=== PATIENT | female | born 1940 | race Caucasian/White ===

== ENCOUNTER → 2017-08-16 | Outpatient (CLI) | payer MEDICARE ==
[~2017-08-16] MED LIST: ANTI1CAP PO; APIX2.5T PO; BENA1TAB11 PO; BENZ200C48 PO; CALC0.25 PO; CALC667C PO; CITA40TA5 PO; FENTANYL PF 100 MCG/2ML ONE; FURO-92 PO; GABA-826 PO; LANS30CA PO; LEVO50TA5 PO; METO-93 PO; METO25TA35 PO; MIDAZOLAM 1 MG/ML, 5ML ONE; MIDO5TAB PO; OMEP-110 PO; SIMV20TA3 PO; SULF-16 PO; WARF1TAB74 PO
== END | disposition home or self-care (01) ==
LOC: CARD 13:59
PROVIDERS: ATTEND Internal Medicine Cardiovascular Disease
DX: J44.9 Chronic obstructive pulmonary disease, unspecified (principal); R06.02 Shortness of breath
CPT/HCPCS: 94060; 94726; 94729

== ENCOUNTER 2017-08-25 10:37 | Day surgery (SDC) | payer MEDICARE ==
[~2017-08-25] VITALS: Ht 162.6 cm; Wt 57.0 kg
[~2017-08-25 10:37] MED LIST changes: -FENTANYL PF 100 MCG/2ML ONE; -MIDAZOLAM 1 MG/ML, 5ML ONE
[2017-08-25 11:18] VITALS: BP 154/67
[2017-08-25] MEDS ORDERED: LIDOCAINE/PF 1%, 30ML ONE (13:28)
[2017-08-25] MEDS ORDERED: DIPHENHYDRAMINE 50 MG/ML, 1ML ONE (13:42)
[2017-08-25] MEDS ORDERED: ALBUTEROL SULFATE 2.5 MG/3 ML ONE (14:42)
[2017-08-25] MEDS ORDERED: FUROSEMIDE 40 MG/4 ML ONE (14:51)
[2017-08-25] MEDS ORDERED: FUROSEMIDE 40 MG/4 ML IV ONE (15:00)
[2017-08-25] MEDS ORDERED: ALBUTEROL SULFATE 2.5 MG/3 ML NPPB ONE (15:00)
== END 2017-08-25 16:53 | disposition home or self-care (01) ==
LOC: CACL 10:37
PROVIDERS: ATTEND Internal Medicine Cardiovascular Disease
DX: I27.20 Pulmonary hypertension, unspecified (principal); J44.9 Chronic obstructive pulmonary disease, unspecified; J84.10 Pulmonary fibrosis, unspecified; I12.0 Hypertensive chronic kidney disease with stage 5 chronic kidney disease or end stage renal disease; N18.6 End stage renal disease; Z85.51 Personal history of malignant neoplasm of bladder; Z87.440 Personal history of urinary (tract) infections
CPT/HCPCS: 93451; 94640; 99156; 99157; C1769; C1894; J1200; J1940; J2250; J3010; J3490

== ENCOUNTER 2017-08-27 04:21 | Inpatient (IN) | payer MEDICARE ==
[~2017-08-27] VITALS: Ht 162.6 cm; Wt 58.0 kg
[2017-08-27 09:14] LABS: FIO2 40 %
[2017-08-27 09:16] LABS: MEAN CORPUSCULAR HEMOGLOBIN 36.9 pg (27.0-34.8); MEAN CORPUSCULAR HGB CONC 32.9 g/dL (32.4-35.8); MEAN CORPUSCULAR VOLUME 112.3 fL (80-100); MEAN PLATELET VOLUME 7.8 fL (7.4-10.4); PLATELET COUNT 182 x10^3/uL (130-400); RED BLOOD COUNT 2.41 x10^6/uL (3.82-5.3); RED CELL DISTRIBUTION WIDTH 14.4 % (9.6-15.2)
[2017-08-27 09:27] LABS: ALANINE AMINOTRANSFERASE 26 U/L (12-78); ALBUMIN 3.4 g/dL (3.4-5.0); ANION GAP 7 mmol/L (5-15); CALCIUM 9.1 mg/dL (8.5-10.1); CHLORIDE 95 mmol/L (98-107)
[2017-08-27 09:32] LABS: ALKALINE PHOSPHATASE 75 U/L (45-117); BILIRUBIN,TOTAL 0.6 mg/dL (0.2-1.0); TOTAL PROTEIN 6.6 g/dL (6.4-8.2); TROPONIN I < 0.015 ng/mL (0.000-0.045)
[2017-08-27] MEDS ORDERED: FAMOTIDINE 20 MG/2 ML IVPush SCH (10:00)
[2017-08-27] MEDS ORDERED: hydrALAzine 20 MG/ML, 1ML IVPush PRN (10:00)
[2017-08-27] MEDS ORDERED: BISACODYL 10 MG SUPP PR PRN (10:00)
[2017-08-27] MEDS ORDERED: POLYETHYLENE GLYCOL 17 GM PACKET PO PRN (10:00)
[2017-08-27] MEDS ORDERED: DOCUSATE 100 MG CAPSULE PO PRN (10:00)
[2017-08-27] MEDS: PLEASE ENTER HEIGHT AND WEIGHT MC SCH ×2 (10:30→13:23)
[2017-08-27 10:39] VITALS: BP 129/67
[2017-08-27 10:55] LABS: MD MORPH REVIEW ONLY
[2017-08-27 10:56] LABS: BASOPHILS # (AUTO) 0.01 x10^3/uL (0-0.1); BASOPHILS % (AUTO) 0 % (0-1); EOSINOPHILS # (AUTO) 0.05 x10^3/uL (0-0.4); EOSINOPHILS % (AUTO) 1 % (1-7); LYMPHOCYTES # (AUTO) 0.69 x10^3/uL (1-3.4); LYMPHOCYTES % (AUTO) 15 % (22-44); MONOCYTES # (AUTO) 0.52 x10^3/uL (0.2-0.8); MONOCYTES % (AUTO) 11 % (2-9); NEUTROPHILS # (AUTO) 3.29 x10^3/uL (1.8-6.8); NEUTROPHILS % (AUTO) 72 % (42-75)
[2017-08-27 10:58] LABS: <PLATELET ESTIMATE> ADEQUATE; <PLT MORPHOLOGY> NORMAL PLT MORPH; ANISOCYTOSIS 1+
[2017-08-27] MEDS: methylPREDNISolone SOD SUCC 125 MG/2 ML IVPush SCH ×2 (13:31→21:52)
[2017-08-27] MEDS: DOXYCYCLINE 100MG TABLET PO SCH ×2 (13:32→21:53)
[2017-08-27] MEDS: MIDODRINE 5 MG TABLET PO SCH ×2 (15:31→21:52)
[2017-08-27] MEDS ORDERED: ALBUMIN HUMAN 25% 50 ML IV PRN (17:00)
[2017-08-27] MEDS: CALCIUM ACETATE 667 MG CAPSULE PO SCH (19:37)
[2017-08-27] MEDS: GABAPENTIN 100 MG CAPSULE PO SCH ×2 (19:37→21:00)
[2017-08-27] MEDS ORDERED: hydrOXyzine 10 MG/5 ML ORAL SOL PO PRN (20:00)
[2017-08-27] MEDS: APIXABAN 2.5 MG TABLET PO SCH (21:52)
[2017-08-27] MEDS: SIMVASTATIN 20 MG TABLET PO SCH (21:53)
[2017-08-27] MEDS: ACETAMINOPHEN 325 MG TABLET PO PRN (21:53)
[2017-08-28] MEDS ORDERED: DILTIAZEM 125 MG in SODIUM CHLORIDE 0.9% 100 ML IV PRN (02:00)
[2017-08-28] MEDS: methylPREDNISolone SOD SUCC 125 MG/2 ML IVPush SCH ×4 (04:31→22:05)
[2017-08-28 05:27] LABS: MEAN CORPUSCULAR HEMOGLOBIN 37.6 pg (27.0-34.8); MEAN CORPUSCULAR HGB CONC 33.7 g/dL (32.4-35.8); MEAN CORPUSCULAR VOLUME 111.7 fL (80-100); MEAN PLATELET VOLUME 8.2 fL (7.4-10.4); PLATELET COUNT 171 x10^3/uL (130-400); RED BLOOD COUNT 2.43 x10^6/uL (3.82-5.3); RED CELL DISTRIBUTION WIDTH 14.2 % (9.6-15.2)
[2017-08-28 05:35] LABS: CHLORIDE 96 mmol/L (98-107)
[2017-08-28 05:43] LABS: ALANINE AMINOTRANSFERASE 24 U/L (12-78); ALBUMIN 3.4 g/dL (3.4-5.0); ALKALINE PHOSPHATASE 77 U/L (45-117); ANION GAP 9 mmol/L (5-15); BILIRUBIN,TOTAL 0.6 mg/dL (0.2-1.0); CALCIUM 9.7 mg/dL (8.5-10.1); CREATININE 4.71 mg/dL (0.55-1.02); TOTAL PROTEIN 6.5 g/dL (6.4-8.2)
[2017-08-28 06:09] LABS: BASOPHILS # (AUTO) 0.01 x10^3/uL (0-0.1); BASOPHILS % (AUTO) 0 % (0-1); EOSINOPHILS % (AUTO) 0 % (1-7); LYMPHOCYTES # (AUTO) 0.48 x10^3/uL (1-3.4); LYMPHOCYTES % (AUTO) 11 % (22-44); MD SCAN; MONOCYTES # (AUTO) 0.09 x10^3/uL (0.2-0.8); MONOCYTES % (AUTO) 2 % (2-9); NEUTROPHILS # (AUTO) 3.68 x10^3/uL (1.8-6.8); NEUTROPHILS % (AUTO) 87 % (42-75)
[2017-08-28] MEDS: CITALOPRAM 20 MG TABLET PO SCH (08:30)
[2017-08-28] MEDS: GABAPENTIN 100 MG CAPSULE PO SCH ×3 (08:30→22:06)
[2017-08-28] MEDS: CALCIUM ACETATE 667 MG CAPSULE PO SCH ×3 (08:30→16:11)
[2017-08-28] MEDS: DOXYCYCLINE 100MG TABLET PO SCH ×2 (08:30→22:06)
[2017-08-28] MEDS: OMEPRAZOLE 20 MG CAPSULE.DR PO SCH (08:30)
[2017-08-28] MEDS: APIXABAN 2.5 MG TABLET PO SCH ×2 (08:30→22:07)
[2017-08-28] MEDS: LEVOTHYROXINE 50 MCG TABLET PO SCH (08:30)
[2017-08-28] MEDS: METOPROLOL TARTRATE 25 MG TABLET PO SCH ×2 (09:17→22:05)
[2017-08-28] MEDS: FLUTICASONE NASAL SPRAY 16GM NAS SCH (10:28)
[2017-08-28 16:10] VITALS: BP 146/69
[2017-08-28 19:35] VITALS: BP 149/72
[2017-08-28] MEDS: SIMVASTATIN 20 MG TABLET PO SCH (22:07)
[2017-08-28] MEDS: ACETAMINOPHEN 325 MG TABLET PO PRN (22:28)
[2017-08-29 00:42] VITALS: BP 122/58
[2017-08-29] MEDS: methylPREDNISolone SOD SUCC 125 MG/2 ML IVPush SCH ×4 (04:00→22:57)
[2017-08-29 04:48] LABS: MEAN CORPUSCULAR HGB CONC 33.2 g/dL (32.4-35.8); MEAN CORPUSCULAR VOLUME 111.5 fL (80-100); MEAN PLATELET VOLUME 8.2 fL (7.4-10.4); PLATELET COUNT 182 x10^3/uL (130-400); RED BLOOD COUNT 2.36 x10^6/uL (3.82-5.3); RED CELL DISTRIBUTION WIDTH 14.4 % (9.6-15.2)
[2017-08-29 04:54] LABS: ALBUMIN 3.6 g/dL (3.4-5.0); ANION GAP 10 mmol/L (5-15); CALCIUM 9.5 mg/dL (8.5-10.1); CHLORIDE 95 mmol/L (98-107)
[2017-08-29 04:59] LABS: ALANINE AMINOTRANSFERASE 23 U/L (12-78); ALKALINE PHOSPHATASE 70 U/L (45-117); BILIRUBIN,TOTAL 0.7 mg/dL (0.2-1.0); CREATININE 5.85 mg/dL (0.55-1.02); TOTAL PROTEIN 6.6 g/dL (6.4-8.2)
[2017-08-29 05:52] LABS: BASOPHILS # (AUTO) 0.01 x10^3/uL (0-0.1); BASOPHILS % (AUTO) 0 % (0-1); EOSINOPHILS % (AUTO) 0 % (1-7); LYMPHOCYTES # (AUTO) 0.46 x10^3/uL (1-3.4); LYMPHOCYTES % (AUTO) 6 % (22-44); MD SCAN; MONOCYTES # (AUTO) 0.19 x10^3/uL (0.2-0.8); MONOCYTES % (AUTO) 2 % (2-9); NEUTROPHILS # (AUTO) 7.68 x10^3/uL (1.8-6.8); NEUTROPHILS % (AUTO) 92 % (42-75)
[2017-08-29] MEDS: ALBUTEROL/IPRATROPIUM 2.5MG/0.5MG, 3 ML NPPB SCH ×4 (06:50→19:58)
[2017-08-29 07:42] VITALS: BP 128/61
[2017-08-29] MEDS: FLUTICASONE NASAL SPRAY 16GM NAS SCH (09:00)
[2017-08-29] MEDS: CALCIUM ACETATE 667 MG CAPSULE PO SCH ×3 (09:14→17:00)
[2017-08-29] MEDS: GABAPENTIN 100 MG CAPSULE PO SCH ×3 (09:14→21:19)
[2017-08-29] MEDS: OMEPRAZOLE 20 MG CAPSULE.DR PO SCH (09:15)
[2017-08-29] MEDS: METOPROLOL TARTRATE 25 MG TABLET PO SCH ×2 (09:16→21:20)
[2017-08-29] MEDS: LEVOTHYROXINE 50 MCG TABLET PO SCH (09:17)
[2017-08-29] MEDS: DOXYCYCLINE 100MG TABLET PO SCH ×2 (09:17→21:20)
[2017-08-29] MEDS: APIXABAN 2.5 MG TABLET PO SCH ×2 (09:18→21:19)
[2017-08-29] MEDS: CITALOPRAM 20 MG TABLET PO SCH (09:18)
[2017-08-29 20:31] VITALS: BP 124/57
[2017-08-29] MEDS: ACETAMINOPHEN 325 MG TABLET PO PRN (21:19)
[2017-08-29] MEDS: SIMVASTATIN 20 MG TABLET PO SCH (21:19)
[2017-08-30 02:19] VITALS: BP 125/60
[2017-08-30 04:54] LABS: MEAN CORPUSCULAR HEMOGLOBIN 37.4 pg (27.0-34.8); MEAN CORPUSCULAR HGB CONC 33.3 g/dL (32.4-35.8); MEAN CORPUSCULAR VOLUME 112.3 fL (80-100); MEAN PLATELET VOLUME 8.3 fL (7.4-10.4); PLATELET COUNT 187 x10^3/uL (130-400); RED BLOOD COUNT 2.64 x10^6/uL (3.82-5.3); RED CELL DISTRIBUTION WIDTH 14.6 % (9.6-15.2)
[2017-08-30] MEDS: methylPREDNISolone SOD SUCC 125 MG/2 ML IVPush SCH ×2 (04:57→11:39)
[2017-08-30 05:08] LABS: ALBUMIN 3.6 g/dL (3.4-5.0); ANION GAP 9 mmol/L (5-15); CALCIUM 9.2 mg/dL (8.5-10.1); CHLORIDE 99 mmol/L (98-107); CREATININE 4.26 mg/dL (0.55-1.02)
[2017-08-30 05:11] LABS: BASOPHILS # (AUTO) 0.02 x10^3/uL (0-0.1); BASOPHILS % (AUTO) 0 % (0-1); EOSINOPHILS % (AUTO) 0 % (1-7); LYMPHOCYTES # (AUTO) 0.49 x10^3/uL (1-3.4); LYMPHOCYTES % (AUTO) 5 % (22-44); MD SCAN; MONOCYTES # (AUTO) 0.19 x10^3/uL (0.2-0.8); MONOCYTES % (AUTO) 2 % (2-9); NEUTROPHILS # (AUTO) 8.86 x10^3/uL (1.8-6.8); NEUTROPHILS % (AUTO) 93 % (42-75)
[2017-08-30] MEDS: ALBUTEROL/IPRATROPIUM 2.5MG/0.5MG, 3 ML NPPB SCH ×3 (06:50→15:30)
[2017-08-30 07:49] VITALS: BP 133/63
[2017-08-30] MEDS: CITALOPRAM 20 MG TABLET PO SCH (09:36)
[2017-08-30] MEDS: GABAPENTIN 100 MG CAPSULE PO SCH (09:36)
[2017-08-30] MEDS: LEVOTHYROXINE 50 MCG TABLET PO SCH (09:36)
[2017-08-30] MEDS: METOPROLOL TARTRATE 25 MG TABLET PO SCH (09:37)
[2017-08-30] MEDS: CALCIUM ACETATE 667 MG CAPSULE PO SCH ×2 (09:37→11:39)
[2017-08-30] MEDS: OMEPRAZOLE 20 MG CAPSULE.DR PO SCH (09:38)
[2017-08-30] MEDS: FLUTICASONE NASAL SPRAY 16GM NAS SCH (09:38)
[2017-08-30] MEDS: APIXABAN 2.5 MG TABLET PO SCH (09:38)
[2017-08-30] MEDS: DOXYCYCLINE 100MG TABLET PO SCH (09:38)
[2017-08-30] MEDS ORDERED: DOXY100T PO (11:23)
[2017-08-30 12:45] VITALS: BP 118/61
[2017-08-30] MEDS ORDERED: PRED20TA PO (14:52)
== END 2017-08-30 16:54 | disposition home or self-care (01) | DRG 189 ==
LOC: CCU 07:14 → 5SO 08-28 13:56 → DCLOUNGE 08-30 16:43
PROVIDERS: ADMIT Hospitalist; ATTEND Hospitalist
PROC: 5A09357 Assistance with Respiratory Ventilation, Less than 24 Consecutive Hours, Continuous Positive Airway Pressure (ICD-10-PCS; principal; 2017-08-27)
PROC: 5A1D70Z Performance of Urinary Filtration, Intermittent, Less than 6 Hours Per Day (ICD-10-PCS; 2017-08-27)
PROC: 5A1D70Z Performance of Urinary Filtration, Intermittent, Less than 6 Hours Per Day (ICD-10-PCS; 2017-08-29)
DX: J96.21 Acute and chronic respiratory failure with hypoxia (principal); N18.6 End stage renal disease; J44.1 Chronic obstructive pulmonary disease with (acute) exacerbation; D68.69 Other thrombophilia; E44.1 Mild protein-calorie malnutrition; E87.3 Alkalosis; I12.0 Hypertensive chronic kidney disease with stage 5 chronic kidney disease or end stage renal disease; I27.20 Pulmonary hypertension, unspecified; D63.1 Anemia in chronic kidney disease; I48.0 Paroxysmal atrial fibrillation; Z99.2 Dependence on renal dialysis; E03.9 Hypothyroidism, unspecified; F32.9 Major depressive disorder, single episode, unspecified; K21.9 Gastro-esophageal reflux disease without esophagitis; N25.0 Renal osteodystrophy; Z23 Encounter for immunization; Z79.01 Long term (current) use of anticoagulants; Z85.51 Personal history of malignant neoplasm of bladder; Z85.528 Personal history of other malignant neoplasm of kidney; Z87.891 Personal history of nicotine dependence; Z90.5 Acquired absence of kidney
CPT/HCPCS: 36415; 36600; 71045; 80053; 80069; 82103; 82104; 82803; 82962; 83605; 83735; 84100; 84145; 84484; 85025; 87040; 87081; 93005; 94640; 94660; J7620; J2930; Q0177; S0028

== ENCOUNTER → 2017-11-10 | Outpatient (CLI) | payer MEDICARE ==
[~2017-11-10] MED LIST changes: +DOXY100T PO; +PRED20TA PO
== END | disposition home or self-care (01) ==
LOC: CFH 10:26
PROVIDERS: ATTEND Internal Medicine
DX: J43.2 Centrilobular emphysema (principal); I25.10 Atherosclerotic heart disease of native coronary artery without angina pectoris; I51.7 Cardiomegaly; I50.9 Heart failure, unspecified; Z85.528 Personal history of other malignant neoplasm of kidney; Z87.891 Personal history of nicotine dependence
CPT/HCPCS: 71250

== ENCOUNTER 2018-08-14 10:52 | Inpatient (IN) | payer MEDICARE ==
[~2018-08-14] VITALS: Ht 162.6 cm; Wt 63.7 kg
[~2018-08-14 10:52] MED LIST changes: -MIDO5TAB PO; +MIDO5TAB9 PO
[2018-08-14] MEDS ORDERED: DILTIAZEM 125 MG in SODIUM CHLORIDE 0.9% 100 ML IV SCH ×2 (10:57→15:00)
[2018-08-14] MEDS ORDERED: DILTIAZEM 5 MG/ML, 5ML IV ONE (11:00)
[2018-08-14] MEDS ORDERED: DILTIAZEM 5 MG/ML, 5ML ONE (11:09)
[2018-08-14 11:15] LABS: BASOPHILS # (AUTO) 0.01 x10^3/uL (0-0.1); BASOPHILS % (AUTO) 0 % (0-1); EOSINOPHILS # (AUTO) 0.22 x10^3/uL (0-0.4); EOSINOPHILS % (AUTO) 3 % (1-7); LYMPHOCYTES # (AUTO) 0.61 x10^3/uL (1-3.4); LYMPHOCYTES % (AUTO) 9 % (22-44); MD NO; MEAN CORPUSCULAR HEMOGLOBIN 34.9 pg (27.0-34.8); MEAN CORPUSCULAR VOLUME 108.8 fL (80-100); MEAN PLATELET VOLUME 7.9 fL (7.4-10.4); MONOCYTES # (AUTO) 0.56 x10^3/uL (0.2-0.8); MONOCYTES % (AUTO) 8 % (2-9); NEUTROPHILS # (AUTO) 5.78 x10^3/uL (1.8-6.8); NEUTROPHILS % (AUTO) 80 % (42-75); PLATELET COUNT 217 x10^3/uL (130-400); RED CELL DISTRIBUTION WIDTH 13.6 % (9.6-15.2)
[2018-08-14 11:25] LABS: ALBUMIN 3.4 g/dL (3.4-5.0); ANION GAP 8 mmol/L (5-15); CALCIUM 9.6 mg/dL (8.5-10.1); CHLORIDE 97 mmol/L (98-107); CREATININE 5.29 mg/dL (0.55-1.02)
--- NOTE | 2018-08-14 11:25 | NUR ---
PT BIB EMS. WAS GOING TO DIALYSIS THIS AM. STATES SHE DEVELOPED A BARRETT AND BECAME DIZZY WHILE GETTING OUT OF THE CAR. AT TREATMENT, PT REMAINED DIZZY. NOTED TO BE TACHYCARDIC AND HYPOTENSIVE AT DIALYSIS. PER EMS, BP SYSTOLIC 70-90. HR 160'S AFIB. PT DID NOT FINISH DIALYSIS TREATMENT PRIOR TO EMS . PT ARRIVES WITH HR 170 IN AFIB. CP MONITORS IN PLACE AND EKG AT BEDSIDE. DENIES CHEST PAIN. IV ACCESS ESTABLISHED AND LABS DRAWN. PT GIVEN DILT PUSH PER ORDER. AND DILT GTT STARTED. HR NOW 100 TO 110'S, AFIB. BP 104/56 NOW. PT A&OX4. PT DENIES DIZZINESS WHILE RESTING ON GURNEY. AT BEDSIDE. CALL LIGHT IN REACH. SIDERAILS UP X 2.
[2018-08-14 11:29] LABS: TROPONIN I < 0.015 ng/mL (0.000-0.045)
--- NOTE | 2018-08-14 12:37 | NUR ---
PT RESTING ON KRISSY. SUNITA. HR STABLE.
--- NOTE | 2018-08-14 12:39 | NUR ---
PER DANIELA AGUILAR FOR PT TO HAVE DIET TRAY. CARDS DIET ORDERED.
[2018-08-14] MEDS ORDERED: CEFTRIAXONE PMX 1GM/50ML 50 ML IV ONE (13:00)
--- NOTE | 2018-08-14 13:08 | NUR ---
ADMITTING DR TO BEDSIDE FOR EXAM. LAB TO BEDSIDE FOR BLOOD CULTURES.
[2018-08-14] MEDS ORDERED: CEFTRIAXONE PMX 1GM/50ML 50 ML ONE (13:12)
--- NOTE | 2018-08-14 13:28 | NUR ---
REPORT TO GAY AARON.
[2018-08-14] MEDS ORDERED: hydrALAzine 20 MG/ML, 1ML IVPush PRN (13:30)
[2018-08-14] MEDS ORDERED: ONDANSETRON 2MG/ML, 2ML IVPush PRN (13:30)
[2018-08-14 14:01] VITALS: BP 97/61
[2018-08-14] MEDS ORDERED: ALBUTEROL/IPRATROPIUM 2.5MG/0.5MG, 3 ML ONE (16:38)
[2018-08-14] MEDS: ALBUTEROL/IPRATROPIUM 2.5MG/0.5MG, 3 ML NPPB SCH ×2 (16:41→20:57)
[2018-08-14] MEDS: MIDODRINE 5 MG TABLET PO SCH ×2 (16:59→20:48)
[2018-08-14] MEDS: GABAPENTIN 100 MG CAPSULE PO SCH ×2 (17:00→20:49)
[2018-08-14] MEDS: CALCIUM ACETATE 667 MG CAPSULE PO SCH (17:00)
[2018-08-14] MEDS: METOPROLOL TARTRATE 25 MG TABLET PO SCH (17:09)
[2018-08-14] MEDS ORDERED: METOPROLOL TARTRATE 25 MG TABLET PO SCH ×2 (18:00)
[2018-08-14 19:47] LABS: TROPONIN I 0.383 ng/mL (0.000-0.045)
[2018-08-14 19:59] VITALS: BP 111/65
[2018-08-14] MEDS: SIMVASTATIN 20 MG TABLET PO SCH (20:49)
[2018-08-14] MEDS: APIXABAN 2.5 MG TABLET PO SCH (20:50)
[2018-08-14] MEDS: BUDESONIDE 0.5 MG/2 ML INHA INH SCH (20:57)
[2018-08-14] MEDS: DILTIAZEM 125 MG in SODIUM CHLORIDE 0.9% 100 ML IV SCH (21:50)
[2018-08-14] MEDS: ACETAMINOPHEN 325 MG TABLET PO PRN (21:56)
[2018-08-15] VITALS (8 sets, daily range): BP systolic 114–149; BP diastolic 58–79
[2018-08-15 02:30] LABS: BASOPHILS # (AUTO) 0.05 x10^3/uL (0-0.1); BASOPHILS % (AUTO) 1 % (0-1); EOSINOPHILS # (AUTO) 0.23 x10^3/uL (0-0.4); EOSINOPHILS % (AUTO) 4 % (1-7); LYMPHOCYTES # (AUTO) 0.79 x10^3/uL (1-3.4); LYMPHOCYTES % (AUTO) 15 % (22-44); MD NO; MEAN CORPUSCULAR HEMOGLOBIN 35.3 pg (27.0-34.8); MEAN CORPUSCULAR HGB CONC 32.2 g/dL (32.4-35.8); MEAN CORPUSCULAR VOLUME 109.6 fL (80-100); MEAN PLATELET VOLUME 7.9 fL (7.4-10.4); MONOCYTES # (AUTO) 0.68 x10^3/uL (0.2-0.8); MONOCYTES % (AUTO) 13 % (2-9); NEUTROPHILS # (AUTO) 3.64 x10^3/uL (1.8-6.8); NEUTROPHILS % (AUTO) 68 % (42-75); PLATELET COUNT 222 x10^3/uL (130-400); RED BLOOD COUNT 2.12 x10^6/uL (3.82-5.3); RED CELL DISTRIBUTION WIDTH 13.8 % (9.6-15.2)
[2018-08-15 02:42] LABS: ANION GAP 9 mmol/L (5-15); CALCIUM 8.9 mg/dL (8.5-10.1); CHLORIDE 96 mmol/L (98-107)
[2018-08-15 02:49] LABS: % IRON SATURATION 13 % (20-55); CREATININE 6.41 mg/dL (0.55-1.02); IRON LEVEL 39 mcg/dL (50-170); TOTAL IRON BINDING CAPACITY 306 mcg/dL (250-450); TROPONIN I 0.378 ng/mL (0.000-0.045)
[2018-08-15] MEDS: ALBUTEROL/IPRATROPIUM 2.5MG/0.5MG, 3 ML NPPB SCH ×4 (03:00→21:00)
[2018-08-15] MEDS: METOPROLOL TARTRATE 25 MG TABLET PO SCH ×2 (05:46→17:38)
[2018-08-15] MEDS: BUDESONIDE 0.5 MG/2 ML INHA INH SCH ×2 (09:00→21:00)
[2018-08-15] MEDS: APIXABAN 2.5 MG TABLET PO SCH ×2 (09:26→21:00)
[2018-08-15] MEDS: CALCIUM ACETATE 667 MG CAPSULE PO SCH ×3 (09:26→17:38)
[2018-08-15] MEDS: MIDODRINE 5 MG TABLET PO SCH ×3 (09:26→21:01)
[2018-08-15] MEDS: LEVOTHYROXINE 50 MCG TABLET PO SCH (09:26)
[2018-08-15] MEDS: OMEPRAZOLE 20 MG CAPSULE.DR PO SCH (09:26)
[2018-08-15] MEDS: GABAPENTIN 100 MG CAPSULE PO SCH ×3 (09:26→21:00)
[2018-08-15] MEDS: CITALOPRAM 20 MG TABLET PO SCH (09:26)
[2018-08-15] MEDS: DILTIAZEM 125 MG in SODIUM CHLORIDE 0.9% 100 ML IV SCH ×2 (10:57→22:37)
[2018-08-15] MEDS: CEFTRIAXONE PMX 1GM/50ML 50 ML IV SCH (14:37)
[2018-08-15] MEDS: DOCUSATE 100 MG CAPSULE PO SCH (21:00)
[2018-08-15] MEDS: ACETAMINOPHEN 325 MG TABLET PO PRN (21:01)
[2018-08-15] MEDS: SIMVASTATIN 20 MG TABLET PO SCH (21:02)
[2018-08-16 01:27] VITALS: BP_SYST 119; BP_SYST 144; BP_DIAS 68; BP_DIAS 74
[2018-08-16] MEDS: ALBUTEROL/IPRATROPIUM 2.5MG/0.5MG, 3 ML NPPB SCH ×4 (03:00→18:20)
[2018-08-16 05:34] LABS: MEAN CORPUSCULAR HEMOGLOBIN 34.7 pg (27.0-34.8); MEAN CORPUSCULAR HGB CONC 32.8 g/dL (32.4-35.8); MEAN CORPUSCULAR VOLUME 105.8 fL (80-100); MEAN PLATELET VOLUME 8.2 fL (7.4-10.4); PLATELET COUNT 214 x10^3/uL (130-400); RED BLOOD COUNT 2.59 x10^6/uL (3.82-5.3); RED CELL DISTRIBUTION WIDTH 16.8 % (9.6-15.2)
[2018-08-16] MEDS: METOPROLOL TARTRATE 25 MG TABLET PO SCH ×2 (05:36→18:01)
[2018-08-16 05:43] LABS: ALBUMIN 3.1 g/dL (3.4-5.0); ANION GAP 7 mmol/L (5-15); CALCIUM 9.1 mg/dL (8.5-10.1); CHLORIDE 99 mmol/L (98-107); CREATININE 4.44 mg/dL (0.55-1.02)
[2018-08-16 06:19] LABS: BASOPHILS # (AUTO) 0.03 x10^3/uL (0-0.1); BASOPHILS % (AUTO) 1 % (0-1); EOSINOPHILS # (AUTO) 0.46 x10^3/uL (0-0.4); EOSINOPHILS % (AUTO) 8 % (1-7); LYMPHOCYTES # (AUTO) 0.67 x10^3/uL (1-3.4); LYMPHOCYTES % (AUTO) 11 % (22-44); MD NO; MONOCYTES # (AUTO) 0.71 x10^3/uL (0.2-0.8); MONOCYTES % (AUTO) 11 % (2-9); NEUTROPHILS # (AUTO) 4.31 x10^3/uL (1.8-6.8); NEUTROPHILS % (AUTO) 70 % (42-75)
[2018-08-16] MEDS: BUDESONIDE 0.5 MG/2 ML INHA INH SCH ×2 (07:54→18:20)
[2018-08-16 09:09] VITALS: BP 155/80
[2018-08-16] MEDS: CALCIUM ACETATE 667 MG CAPSULE PO SCH ×3 (09:14→17:59)
[2018-08-16] MEDS: APIXABAN 2.5 MG TABLET PO SCH (09:16)
[2018-08-16] MEDS: CITALOPRAM 20 MG TABLET PO SCH (09:16)
[2018-08-16] MEDS: DOCUSATE 100 MG CAPSULE PO SCH ×2 (09:16→21:31)
[2018-08-16] MEDS: GABAPENTIN 100 MG CAPSULE PO SCH ×3 (09:16→21:34)
[2018-08-16] MEDS: OMEPRAZOLE 20 MG CAPSULE.DR PO SCH (09:16)
[2018-08-16] MEDS: MIDODRINE 5 MG TABLET PO SCH ×3 (09:17→21:28)
[2018-08-16] MEDS: LEVOTHYROXINE 50 MCG TABLET PO SCH (09:18)
[2018-08-16] MEDS ORDERED: OMNIPAQUE 350 MG/ML, 100ML BOTTLE ONE (10:28)
[2018-08-16] MEDS: GUAIFENESIN ER 600 MG TABLET PO SCH ×2 (12:56→21:30)
[2018-08-16 13:05] VITALS: BP 161/80
[2018-08-16] MEDS: CEFTRIAXONE PMX 1GM/50ML 50 ML IV SCH (17:59)
[2018-08-16] MEDS: DILTIAZEM CD 180 MG CAP.ER.24H PO SCH (17:59)
[2018-08-16] MEDS: HEPARIN 5,000 UNITS/ML, 1ML SQ SCH ×2 (18:00→21:33)
[2018-08-16 20:43] VITALS: BP 154/70
[2018-08-16] MEDS: SIMVASTATIN 20 MG TABLET PO SCH (21:31)
[2018-08-16] MEDS: ACETAMINOPHEN 325 MG TABLET PO PRN (21:31)
[2018-08-17 00:39] VITALS: BP 123/63
[2018-08-17] MEDS ORDERED: methylPREDNISolone SOD SUCC 125 MG/2 ML IVPush SCH (01:30)
[2018-08-17] MEDS ORDERED: FUROSEMIDE 40 MG/4 ML IV ONE (01:30)
[2018-08-17] MEDS: ALBUTEROL/IPRATROPIUM 2.5MG/0.5MG, 3 ML NPPB SCH ×4 (03:00→21:15)
[2018-08-17 05:11] LABS: BASOPHILS # (AUTO) 0.03 x10^3/uL (0-0.1); BASOPHILS % (AUTO) 0 % (0-1); EOSINOPHILS # (AUTO) 0.05 x10^3/uL (0-0.4); EOSINOPHILS % (AUTO) 1 % (1-7); LYMPHOCYTES # (AUTO) 0.53 x10^3/uL (1-3.4); LYMPHOCYTES % (AUTO) 8 % (22-44); MD NO; MEAN CORPUSCULAR HEMOGLOBIN 35.2 pg (27.0-34.8); MEAN CORPUSCULAR HGB CONC 33.3 g/dL (32.4-35.8); MEAN CORPUSCULAR VOLUME 105.5 fL (80-100); MEAN PLATELET VOLUME 8.1 fL (7.4-10.4); MONOCYTES % (AUTO) 6 % (2-9); NEUTROPHILS # (AUTO) 5.49 x10^3/uL (1.8-6.8); NEUTROPHILS % (AUTO) 84 % (42-75); PLATELET COUNT 223 x10^3/uL (130-400); RED BLOOD COUNT 2.74 x10^6/uL (3.82-5.3); RED CELL DISTRIBUTION WIDTH 15.3 % (9.6-15.2)
[2018-08-17 05:21] LABS: ALBUMIN 3.3 g/dL (3.4-5.0); ANION GAP 6 mmol/L (5-15); CALCIUM 9.5 mg/dL (8.5-10.1); CHLORIDE 100 mmol/L (98-107)
[2018-08-17 05:24] LABS: CREATININE 3.02 mg/dL (0.55-1.02)
[2018-08-17] MEDS: METOPROLOL TARTRATE 25 MG TABLET PO SCH ×2 (05:49→17:06)
[2018-08-17 07:41] VITALS: BP 123/63
[2018-08-17] MEDS: DOCUSATE 100 MG CAPSULE PO SCH ×2 (08:00→22:27)
[2018-08-17] MEDS: OMEPRAZOLE 20 MG CAPSULE.DR PO SCH (08:00)
[2018-08-17] MEDS: MIDODRINE 5 MG TABLET PO SCH ×3 (08:00→22:27)
[2018-08-17] MEDS: GUAIFENESIN ER 600 MG TABLET PO SCH ×2 (08:00→22:26)
[2018-08-17] MEDS: CITALOPRAM 20 MG TABLET PO SCH (08:00)
[2018-08-17] MEDS: LEVOTHYROXINE 50 MCG TABLET PO SCH (08:00)
[2018-08-17] MEDS: GABAPENTIN 100 MG CAPSULE PO SCH ×3 (08:00→22:27)
[2018-08-17] MEDS: DILTIAZEM CD 180 MG CAP.ER.24H PO SCH (08:00)
[2018-08-17] MEDS: CALCIUM ACETATE 667 MG CAPSULE PO SCH ×3 (08:00→17:07)
[2018-08-17] MEDS: HEPARIN 5,000 UNITS/ML, 1ML SQ SCH ×2 (09:35→17:07)
[2018-08-17] MEDS: BUDESONIDE 0.5 MG/2 ML INHA INH SCH ×2 (10:24→21:15)
[2018-08-17] MEDS: methylPREDNISolone SOD SUCC 125 MG/2 ML IVPush SCH ×3 (10:28→23:21)
[2018-08-17] MEDS: ACETAMINOPHEN 325 MG TABLET PO PRN ×2 (13:24→23:21)
[2018-08-17] MEDS: CEFTRIAXONE PMX 1GM/50ML 50 ML IV SCH (17:07)
[2018-08-17 17:08] VITALS: BP 146/69
[2018-08-17 20:16] VITALS: BP 136/63
[2018-08-17] MEDS: SIMVASTATIN 20 MG TABLET PO SCH (22:27)
[2018-08-18] MEDS: HEPARIN 5,000 UNITS/ML, 1ML SQ SCH ×3 (01:20→17:00)
[2018-08-18 02:03] VITALS: BP 138/66
[2018-08-18] MEDS: ALBUTEROL/IPRATROPIUM 2.5MG/0.5MG, 3 ML NPPB SCH ×4 (03:00→20:28)
[2018-08-18 05:18] LABS: BASOPHILS # (AUTO) 0.01 x10^3/uL (0-0.1); BASOPHILS % (AUTO) 0 % (0-1); EOSINOPHILS % (AUTO) 0 % (1-7); LYMPHOCYTES # (AUTO) 0.61 x10^3/uL (1-3.4); LYMPHOCYTES % (AUTO) 9 % (22-44); MD NO; MEAN CORPUSCULAR HEMOGLOBIN 33.7 pg (27.0-34.8); MEAN CORPUSCULAR HGB CONC 32.2 g/dL (32.4-35.8); MEAN CORPUSCULAR VOLUME 104.6 fL (80-100); MONOCYTES # (AUTO) 0.12 x10^3/uL (0.2-0.8); MONOCYTES % (AUTO) 2 % (2-9); NEUTROPHILS # (AUTO) 5.77 x10^3/uL (1.8-6.8); NEUTROPHILS % (AUTO) 89 % (42-75); PLATELET COUNT 266 x10^3/uL (130-400); RED BLOOD COUNT 2.98 x10^6/uL (3.82-5.3); RED CELL DISTRIBUTION WIDTH 15.4 % (9.6-15.2)
[2018-08-18 05:29] VITALS: BP 130/72
[2018-08-18 05:31] LABS: ALANINE AMINOTRANSFERASE 25 U/L (12-78); ALBUMIN 3.4 g/dL (3.4-5.0); ANION GAP 11 mmol/L (5-15); CHLORIDE 96 mmol/L (98-107); CREATININE 4.37 mg/dL (0.55-1.02)
[2018-08-18] MEDS: METOPROLOL TARTRATE 25 MG TABLET PO SCH ×2 (05:31→18:09)
[2018-08-18] MEDS: methylPREDNISolone SOD SUCC 125 MG/2 ML IVPush SCH ×3 (05:31→17:00)
[2018-08-18 05:34] LABS: ALKALINE PHOSPHATASE 90 U/L (45-117); BILIRUBIN,TOTAL 1.3 mg/dL (0.2-1.0); TOTAL PROTEIN 7.2 g/dL (6.4-8.2)
[2018-08-18] MEDS: ACETAMINOPHEN 325 MG TABLET PO PRN (06:18)
[2018-08-18 07:45] VITALS: BP 143/72
[2018-08-18] MEDS: BUDESONIDE 0.5 MG/2 ML INHA INH SCH ×2 (07:50→20:28)
[2018-08-18] MEDS: CALCIUM ACETATE 667 MG CAPSULE PO SCH ×3 (08:58→16:59)
[2018-08-18] MEDS: LEVOTHYROXINE 50 MCG TABLET PO SCH (08:58)
[2018-08-18] MEDS: MIDODRINE 5 MG TABLET PO SCH ×2 (08:59→17:00)
[2018-08-18] MEDS: GUAIFENESIN ER 600 MG TABLET PO SCH ×2 (09:00→20:22)
[2018-08-18] MEDS: GABAPENTIN 100 MG CAPSULE PO SCH ×2 (09:00→16:59)
[2018-08-18] MEDS: DILTIAZEM CD 180 MG CAP.ER.24H PO SCH (09:00)
[2018-08-18] MEDS: OMEPRAZOLE 20 MG CAPSULE.DR PO SCH (09:00)
[2018-08-18] MEDS: DOCUSATE 100 MG CAPSULE PO SCH ×2 (09:00→20:22)
[2018-08-18] MEDS: CITALOPRAM 20 MG TABLET PO SCH (09:00)
[2018-08-18 12:35] VITALS: BP 124/73
[2018-08-18] MEDS: CEFTRIAXONE PMX 1GM/50ML 50 ML IV SCH (17:02)
[2018-08-18 18:37] VITALS: BP 148/68
[2018-08-18] MEDS: SIMVASTATIN 20 MG TABLET PO SCH (20:22)
[2018-08-18 21:31] VITALS: BP 121/56
[2018-08-19] MEDS: methylPREDNISolone SOD SUCC 125 MG/2 ML IVPush SCH ×4 (00:09→18:12)
[2018-08-19] MEDS: GABAPENTIN 100 MG CAPSULE PO SCH ×4 (00:09→21:18)
[2018-08-19] MEDS: MIDODRINE 5 MG TABLET PO SCH ×4 (00:09→21:18)
[2018-08-19] MEDS: ACETAMINOPHEN 325 MG TABLET PO PRN ×2 (00:14→15:59)
[2018-08-19 00:29] VITALS: BP 125/67
[2018-08-19] MEDS: ALBUTEROL/IPRATROPIUM 2.5MG/0.5MG, 3 ML NPPB SCH ×4 (02:15→20:36)
[2018-08-19] MEDS: HEPARIN 5,000 UNITS/ML, 1ML SQ SCH ×3 (03:37→21:19)
[2018-08-19] MEDS: OMEPRAZOLE 20 MG CAPSULE.DR PO SCH (05:53)
[2018-08-19] MEDS: LEVOTHYROXINE 50 MCG TABLET PO SCH (05:53)
[2018-08-19] MEDS: METOPROLOL TARTRATE 25 MG TABLET PO SCH ×2 (05:53→18:17)
[2018-08-19 05:55] VITALS: BP 142/76
[2018-08-19 05:56] LABS: BASOPHILS % (AUTO) 0 % (0-1); EOSINOPHILS % (AUTO) 0 % (1-7); LYMPHOCYTES % (AUTO) 5 % (22-44); MD NO; MEAN CORPUSCULAR HEMOGLOBIN 34.3 pg (27.0-34.8); MEAN CORPUSCULAR HGB CONC 32.7 g/dL (32.4-35.8); MEAN PLATELET VOLUME 8.2 fL (7.4-10.4); MONOCYTES # (AUTO) 0.29 x10^3/uL (0.2-0.8); MONOCYTES % (AUTO) 4 % (2-9); NEUTROPHILS # (AUTO) 7.36 x10^3/uL (1.8-6.8); NEUTROPHILS % (AUTO) 92 % (42-75); PLATELET COUNT 280 x10^3/uL (130-400); RED BLOOD COUNT 2.76 x10^6/uL (3.82-5.3); RED CELL DISTRIBUTION WIDTH 15.7 % (9.6-15.2)
[2018-08-19 06:03] LABS: ALBUMIN 3.2 g/dL (3.4-5.0); ANION GAP 9 mmol/L (5-15); CALCIUM 9.3 mg/dL (8.5-10.1); CHLORIDE 97 mmol/L (98-107)
[2018-08-19 06:08] LABS: ALANINE AMINOTRANSFERASE 21 U/L (12-78); ALKALINE PHOSPHATASE 79 U/L (45-117); BILIRUBIN,TOTAL 0.7 mg/dL (0.2-1.0); TOTAL PROTEIN 6.6 g/dL (6.4-8.2)
[2018-08-19 06:54] VITALS: BP 139/78
[2018-08-19] MEDS: DILTIAZEM CD 180 MG CAP.ER.24H PO SCH (08:49)
[2018-08-19] MEDS: GUAIFENESIN ER 600 MG TABLET PO SCH ×2 (08:49→21:19)
[2018-08-19] MEDS: CITALOPRAM 20 MG TABLET PO SCH (08:49)
[2018-08-19] MEDS: CALCIUM ACETATE 667 MG CAPSULE PO SCH ×3 (08:49→18:12)
[2018-08-19] MEDS: BUDESONIDE 0.5 MG/2 ML INHA INH SCH ×2 (09:00→20:36)
[2018-08-19] MEDS: DOCUSATE 100 MG CAPSULE PO SCH ×2 (09:06→21:18)
[2018-08-19] MEDS ORDERED: SENNA/DOCUSATE TABLET PO PRN (12:30)
[2018-08-19 13:48] VITALS: BP 134/82
[2018-08-19] MEDS ORDERED: BISACODYL 10 MG SUPP ONE (17:56)
[2018-08-19] MEDS: CEFTRIAXONE PMX 1GM/50ML 50 ML IV SCH (18:12)
[2018-08-19 18:47] VITALS: BP 129/67
[2018-08-19 21:14] VITALS: BP 122/60
[2018-08-19] MEDS: SIMVASTATIN 20 MG TABLET PO SCH (21:18)
[2018-08-20] MEDS: methylPREDNISolone SOD SUCC 125 MG/2 ML IVPush SCH ×4 (00:10→18:25)
[2018-08-20 00:13] VITALS: BP 119/62
[2018-08-20] MEDS: ACETAMINOPHEN 325 MG TABLET PO PRN ×2 (00:57→20:37)
[2018-08-20] MEDS: ALBUTEROL/IPRATROPIUM 2.5MG/0.5MG, 3 ML NPPB SCH ×4 (02:57→20:07)
[2018-08-20 06:07] LABS: BASOPHILS % (AUTO) 3 % (0-1); EOSINOPHILS % (AUTO) 0 % (1-7); LYMPHOCYTES # (AUTO) 0.42 x10^3/uL (1-3.4); LYMPHOCYTES % (AUTO) 5 % (22-44); MD NO; MEAN CORPUSCULAR HEMOGLOBIN 33.9 pg (27.0-34.8); MEAN CORPUSCULAR HGB CONC 32.5 g/dL (32.4-35.8); MEAN CORPUSCULAR VOLUME 104.4 fL (80-100); MEAN PLATELET VOLUME 8.1 fL (7.4-10.4); MONOCYTES # (AUTO) 0.22 x10^3/uL (0.2-0.8); MONOCYTES % (AUTO) 3 % (2-9); NEUTROPHILS # (AUTO) 7.02 x10^3/uL (1.8-6.8); NEUTROPHILS % (AUTO) 89 % (42-75); PLATELET COUNT 265 x10^3/uL (130-400); RED CELL DISTRIBUTION WIDTH 14.5 % (9.6-15.2)
[2018-08-20 06:19] LABS: ANION GAP 10 mmol/L (5-15); CALCIUM 9.5 mg/dL (8.5-10.1); CHLORIDE 96 mmol/L (98-107); CREATININE 5.02 mg/dL (0.55-1.02)
[2018-08-20 06:25] VITALS: BP 138/67
[2018-08-20] MEDS: HEPARIN 5,000 UNITS/ML, 1ML SQ SCH ×3 (06:27→20:38)
[2018-08-20] MEDS: OMEPRAZOLE 20 MG CAPSULE.DR PO SCH (06:28)
[2018-08-20] MEDS: METOPROLOL TARTRATE 25 MG TABLET PO SCH ×2 (06:28→17:15)
[2018-08-20] MEDS: LEVOTHYROXINE 50 MCG TABLET PO SCH (06:28)
[2018-08-20 08:01] VITALS: BP 133/65
[2018-08-20] MEDS: GABAPENTIN 100 MG CAPSULE PO SCH ×3 (08:54→20:37)
[2018-08-20] MEDS: GUAIFENESIN ER 600 MG TABLET PO SCH ×2 (08:54→20:37)
[2018-08-20] MEDS: DILTIAZEM CD 180 MG CAP.ER.24H PO SCH (08:54)
[2018-08-20] MEDS: DOCUSATE 100 MG CAPSULE PO SCH ×2 (08:54→20:35)
[2018-08-20] MEDS: CALCIUM ACETATE 667 MG CAPSULE PO SCH ×3 (08:54→17:16)
[2018-08-20] MEDS: CITALOPRAM 20 MG TABLET PO SCH (08:54)
[2018-08-20] MEDS: MIDODRINE 5 MG TABLET PO SCH ×3 (08:55→20:38)
[2018-08-20] MEDS: BUDESONIDE 0.5 MG/2 ML INHA INH SCH ×2 (09:55→20:07)
[2018-08-20] MEDS ORDERED: BISACODYL 10 MG SUPP PR PRN (10:30)
[2018-08-20 14:32] VITALS: BP 127/43
[2018-08-20] MEDS: CEFTRIAXONE PMX 1GM/50ML 50 ML IV SCH (17:16)
[2018-08-20 20:37] VITALS: BP 121/65
[2018-08-20] MEDS: SIMVASTATIN 20 MG TABLET PO SCH (20:37)
[2018-08-21] MEDS: methylPREDNISolone SOD SUCC 125 MG/2 ML IVPush SCH ×4 (00:05→21:53)
[2018-08-21 02:31] VITALS: BP 151/55
[2018-08-21] MEDS: ALBUTEROL/IPRATROPIUM 2.5MG/0.5MG, 3 ML NPPB SCH ×4 (03:00→22:24)
[2018-08-21 04:58] VITALS: BP 134/66
[2018-08-21] MEDS: LEVOTHYROXINE 50 MCG TABLET PO SCH (05:00)
[2018-08-21] MEDS: HEPARIN 5,000 UNITS/ML, 1ML SQ SCH ×3 (05:00→21:53)
[2018-08-21] MEDS: OMEPRAZOLE 20 MG CAPSULE.DR PO SCH (05:00)
[2018-08-21] MEDS: METOPROLOL TARTRATE 25 MG TABLET PO SCH ×2 (05:01→17:51)
[2018-08-21] MEDS: BUDESONIDE 0.5 MG/2 ML INHA INH SCH ×2 (07:09→22:24)
[2018-08-21 07:21] LABS: BASOPHILS # (AUTO) 0.05 x10^3/uL (0-0.1); BASOPHILS % (AUTO) 1 % (0-1); EOSINOPHILS % (AUTO) 0 % (1-7); LYMPHOCYTES # (AUTO) 0.47 x10^3/uL (1-3.4); LYMPHOCYTES % (AUTO) 6 % (22-44); MD NO; MEAN CORPUSCULAR HEMOGLOBIN 33.8 pg (27.0-34.8); MEAN CORPUSCULAR HGB CONC 32.3 g/dL (32.4-35.8); MEAN CORPUSCULAR VOLUME 104.8 fL (80-100); MEAN PLATELET VOLUME 8.1 fL (7.4-10.4); MONOCYTES # (AUTO) 0.12 x10^3/uL (0.2-0.8); MONOCYTES % (AUTO) 2 % (2-9); NEUTROPHILS # (AUTO) 7.32 x10^3/uL (1.8-6.8); NEUTROPHILS % (AUTO) 92 % (42-75); PLATELET COUNT 259 x10^3/uL (130-400); RED BLOOD COUNT 2.87 x10^6/uL (3.82-5.3); RED CELL DISTRIBUTION WIDTH 14.9 % (9.6-15.2)
[2018-08-21 07:30] LABS: ANION GAP 14 mmol/L (5-15); CALCIUM 9.2 mg/dL (8.5-10.1); CHLORIDE 93 mmol/L (98-107); CREATININE 5.97 mg/dL (0.55-1.02)
[2018-08-21 07:42] VITALS: BP 150/60
[2018-08-21] MEDS: GUAIFENESIN ER 600 MG TABLET PO SCH ×2 (08:28→20:14)
[2018-08-21] MEDS: CALCIUM ACETATE 667 MG CAPSULE PO SCH ×3 (08:28→16:35)
[2018-08-21] MEDS: DOCUSATE 100 MG CAPSULE PO SCH ×2 (08:28→20:14)
[2018-08-21] MEDS: DILTIAZEM CD 180 MG CAP.ER.24H PO SCH (08:28)
[2018-08-21] MEDS: CITALOPRAM 20 MG TABLET PO SCH (08:28)
[2018-08-21] MEDS: MIDODRINE 5 MG TABLET PO SCH ×3 (08:29→20:14)
[2018-08-21] MEDS: GABAPENTIN 100 MG CAPSULE PO SCH ×3 (08:29→20:14)
[2018-08-21] MEDS ORDERED: ERGOCALCIFEROL 50,000 UNIT CAPSULE PO SCH (09:00)
[2018-08-21 14:00] VITALS: BP 130/67
[2018-08-21] MEDS: CEFTRIAXONE PMX 1GM/50ML 50 ML IV SCH (16:42)
[2018-08-21 20:13] VITALS: BP 134/63
[2018-08-21] MEDS: SIMVASTATIN 20 MG TABLET PO SCH (20:14)
[2018-08-21 20:20] VITALS: BP 127/57
[2018-08-21] MEDS: ACETAMINOPHEN 325 MG TABLET PO PRN (22:15)
[2018-08-22 01:33] VITALS: BP 126/51
[2018-08-22] MEDS: ALBUTEROL/IPRATROPIUM 2.5MG/0.5MG, 3 ML NPPB SCH ×3 (02:55→14:30)
[2018-08-22 05:47] LABS: CHLORIDE 97 mmol/L (98-107)
[2018-08-22 05:53] LABS: ALANINE AMINOTRANSFERASE 29 U/L (12-78); ALBUMIN 3.5 g/dL (3.4-5.0); ALKALINE PHOSPHATASE 72 U/L (45-117); ANION GAP 9 mmol/L (5-15); BILIRUBIN,TOTAL 0.5 mg/dL (0.2-1.0); CALCIUM 9.2 mg/dL (8.5-10.1); CREATININE 3.96 mg/dL (0.55-1.02); TOTAL PROTEIN 6.5 g/dL (6.4-8.2)
[2018-08-22 05:56] VITALS: BP 121/65
[2018-08-22] MEDS: HEPARIN 5,000 UNITS/ML, 1ML SQ SCH ×2 (05:57→14:00)
[2018-08-22] MEDS: methylPREDNISolone SOD SUCC 125 MG/2 ML IVPush SCH ×2 (05:57→14:00)
[2018-08-22] MEDS: OMEPRAZOLE 20 MG CAPSULE.DR PO SCH (05:57)
[2018-08-22] MEDS: LEVOTHYROXINE 50 MCG TABLET PO SCH (05:57)
[2018-08-22] MEDS: METOPROLOL TARTRATE 25 MG TABLET PO SCH (05:57)
[2018-08-22 06:10] LABS: MEAN CORPUSCULAR HEMOGLOBIN 34.8 pg (27.0-34.8); MEAN CORPUSCULAR HGB CONC 32.9 g/dL (32.4-35.8); MEAN CORPUSCULAR VOLUME 105.6 fL (80-100); MEAN PLATELET VOLUME 8.9 fL (7.4-10.4); PLATELET COUNT 204 x10^3/uL (130-400); RED BLOOD COUNT 2.68 x10^6/uL (3.82-5.3)
[2018-08-22 06:28] LABS: BASOPHILS % (AUTO) 0 % (0-1); EOSINOPHILS % (AUTO) 0 % (1-7); LYMPHOCYTES # (AUTO) 0.48 x10^3/uL (1-3.4); LYMPHOCYTES % (AUTO) 7 % (22-44); MD SCAN; MONOCYTES % (AUTO) 8 % (2-9); NEUTROPHILS % (AUTO) 85 % (42-75)
[2018-08-22 07:13] VITALS: BP 127/56
[2018-08-22] MEDS: BUDESONIDE 0.5 MG/2 ML INHA INH SCH (09:00)
[2018-08-22] MEDS: DOCUSATE 100 MG CAPSULE PO SCH (09:29)
[2018-08-22] MEDS: CITALOPRAM 20 MG TABLET PO SCH (09:29)
[2018-08-22] MEDS: CALCIUM ACETATE 667 MG CAPSULE PO SCH ×2 (09:29→12:27)
[2018-08-22] MEDS: GUAIFENESIN ER 600 MG TABLET PO SCH (09:29)
[2018-08-22] MEDS: MIDODRINE 5 MG TABLET PO SCH ×2 (09:29→16:07)
[2018-08-22] MEDS: GABAPENTIN 100 MG CAPSULE PO SCH ×2 (09:30→16:07)
[2018-08-22] MEDS: DILTIAZEM CD 180 MG CAP.ER.24H PO SCH (09:30)
[2018-08-22 13:05] VITALS: BP 169/72
[2018-08-22] MEDS ORDERED: METH4TAB2 PO (15:50)
[2018-08-22] MEDS ORDERED: DILT180C53 PO (15:50)
[2018-08-22] MEDS ORDERED: METO25TA35 PO (15:50)
[2018-08-22] MEDS ORDERED: GUAI600T31 PO (15:50)
[2018-08-22] MEDS ORDERED: BUDE0.5A INH (15:50)
== END 2018-08-22 17:50 | disposition home health service (06) | DRG 871 ==
LOC: ED 13:04 → EDIP 13:05 → 5SO 13:47 → 4EST 08-16 13:42
PROVIDERS: ADMIT Internal Medicine; ATTEND Internal Medicine
PROC: 30233N1 Transfusion of Nonautologous Red Blood Cells into Peripheral Vein, Percutaneous Approach (ICD-10-PCS; principal; 2018-08-15)
PROC: 5A1D70Z Performance of Urinary Filtration, Intermittent, Less than 6 Hours Per Day (ICD-10-PCS; 2018-08-15)
PROC: 5A1D70Z Performance of Urinary Filtration, Intermittent, Less than 6 Hours Per Day (ICD-10-PCS; 2018-08-16)
PROC: 5A1D70Z Performance of Urinary Filtration, Intermittent, Less than 6 Hours Per Day (ICD-10-PCS; 2018-08-17)
PROC: 5A1D70Z Performance of Urinary Filtration, Intermittent, Less than 6 Hours Per Day (ICD-10-PCS; 2018-08-18)
PROC: 5A1D70Z Performance of Urinary Filtration, Intermittent, Less than 6 Hours Per Day (ICD-10-PCS; 2018-08-21)
DX: A41.9 Sepsis, unspecified organism (principal); N18.6 End stage renal disease; J18.9 Pneumonia, unspecified organism; I50.33 Acute on chronic diastolic (congestive) heart failure; J96.21 Acute and chronic respiratory failure with hypoxia; I13.2 Hypertensive heart and chronic kidney disease with heart failure and with stage 5 chronic kidney disease, or end stage renal disease; E87.1 Hypo-osmolality and hyponatremia; D68.69 Other thrombophilia; E44.0 Moderate protein-calorie malnutrition; E87.3 Alkalosis; J44.0 Chronic obstructive pulmonary disease with (acute) lower respiratory infection; J44.1 Chronic obstructive pulmonary disease with (acute) exacerbation; J98.11 Atelectasis; D53.9 Nutritional anemia, unspecified; D63.1 Anemia in chronic kidney disease; E03.9 Hypothyroidism, unspecified; Z68.24 Body mass index [BMI] 24.0-24.9, adult; F32.9 Major depressive disorder, single episode, unspecified; I07.1 Rheumatic tricuspid insufficiency; I27.20 Pulmonary hypertension, unspecified; I35.8 Other nonrheumatic aortic valve disorders; I45.81 Long QT syndrome; I48.0 Paroxysmal atrial fibrillation; K21.9 Gastro-esophageal reflux disease without esophagitis; N25.0 Renal osteodystrophy; Z79.01 Long term (current) use of anticoagulants; Z82.49 Family history of ischemic heart disease and other diseases of the circulatory system; Z82.5 Family history of asthma and other chronic lower respiratory diseases; Z85.528 Personal history of other malignant neoplasm of kidney; Z87.891 Personal history of nicotine dependence; Z90.5 Acquired absence of kidney; Z99.2 Dependence on renal dialysis; Z99.81 Dependence on supplemental oxygen
CPT/HCPCS: 36415; 36600; 71045; 71275; 80048; 80053; 80069; 82040; 82728; 82803; 82962; 83540; 83550; 83605; 83735; 83880; 84100; 84145; 84443; 84484; 85025; 86705; 86706; 86850; 86900; 86923; 87040; 87340; 93005; 93306; 93970; 94640; 96365; 96366; 96375; 96376; 99291; G0378; J0696; J1644; J7620; J7626; Q9967; J2930; P9016

== ENCOUNTER 2018-08-29 18:26 | Inpatient (IN) | payer MEDICARE ==
[~2018-08-29] VITALS: Ht 162.6 cm; Wt 63.0 kg
[~2018-08-29 18:26] MED LIST changes: +BUDE0.5A INH; +DILT180C53 PO; +GUAI600T31 PO; +METH4TAB2 PO
--- NOTE | 2018-08-29 18:59 | NUR ---
PT BIB BY EMS FOR COMPLAINTS FOR RESPIRATORY DISTRESS AND HOME TEMP OF 101 BY PATIENT. EMS STATES PT WAS ADMITTED TO HOSPITAL 2 WEEKS AGO FOR PNEUMONIA FOR 9 DAYS. ON 4L O2, AFIB 100-120, 500 TYLENOL GIVEN IN FIELD. HX OF AFIB, COPD, HTN, DIALYSIS, FISTULA LEFT ARM.
[2018-08-29] MEDS ORDERED: ALBUTEROL/IPRATROPIUM 2.5MG/0.5MG, 3 ML NPPB ONE (19:00)
[2018-08-29] MEDS ORDERED: ACETAMINOPHEN 325 MG TABLET PO ONE (19:00)
[2018-08-29] MEDS ORDERED: DILTIAZEM 5 MG/ML, 5ML IV ONE (19:00)
[2018-08-29] MEDS ORDERED: ACETAMINOPHEN 325 MG TABLET ONE (19:07)
[2018-08-29] MEDS ORDERED: DILTIAZEM 5 MG/ML, 5ML ONE (19:08)
[2018-08-29 19:22] LABS: MEAN CORPUSCULAR HEMOGLOBIN 34.1 pg (27.0-34.8); MEAN CORPUSCULAR HGB CONC 32.2 g/dL (32.4-35.8); MEAN PLATELET VOLUME 8.6 fL (7.4-10.4); PLATELET COUNT 187 x10^3/uL (130-400); RED CELL DISTRIBUTION WIDTH 14.7 % (9.6-15.2)
[2018-08-29 19:27] LABS: MD YES
[2018-08-29 19:35] LABS: ALANINE AMINOTRANSFERASE 79 U/L (12-78); ALBUMIN 3.3 g/dL (3.4-5.0); ANION GAP 6 mmol/L (5-15); CALCIUM 9.3 mg/dL (8.5-10.1); CHLORIDE 97 mmol/L (98-107)
[2018-08-29 19:40] LABS: ALKALINE PHOSPHATASE 68 U/L (45-117); BILIRUBIN,TOTAL 0.5 mg/dL (0.2-1.0); CREATININE 4.06 mg/dL (0.55-1.02); TOTAL PROTEIN 5.9 g/dL (6.4-8.2); TROPONIN I 0.021 ng/mL (0.000-0.045)
--- NOTE | 2018-08-29 19:50 | NUR ---
PT UP TO RR WITH 5L O2 N/C IN USE AND STANDBY ASSIST, PROVIDED PPT WITH URINE CUP FOR SAMPLE
[2018-08-29 20:04] LABS: BAND#(MANUAL) 0.15 x10^3/uL; BANDS%(MANUAL) 1 % (0-7); EOS#(MANUAL) 0.15 x10^3/uL (0.0-0.4); EOS% (MANUAL) 1 % (1-7); LYMPHS% (MANUAL) 2 % (22-44); MONOS#(MANUAL) 0.59 x10^3/uL (0.3-2.7); MONOS% (MANUAL) 4 % (2-9); SEG#(MANUAL) 13.62 x10^3/uL (1.8-6.8); SEGS% (MANUAL) 92 % (42-75)
[2018-08-29 20:06] LABS: <PLATELET ESTIMATE> ADEQUATE; <PLT MORPHOLOGY> NORMAL PLT MORPH; POLYCHROMASIA 1+
[2018-08-29 20:12] LABS: MICROSCOPIC AUTO
[2018-08-29 20:14] LABS: CULTURE INDICATED? YES
[2018-08-29] MEDS ORDERED: AZITHROMYCIN 500 MG in SODIUM CHLORIDE 0.9% 250 ML IV ONE (20:30)
[2018-08-29] MEDS ORDERED: FUROSEMIDE 40 MG/4 ML IV ONE (20:30)
[2018-08-29] MEDS ORDERED: CEFTRIAXONE PMX 1GM/50ML 50 ML IVPB ONE (20:30)
[2018-08-29] MEDS ORDERED: FUROSEMIDE 40 MG/4 ML ONE (20:31)
[2018-08-29] MEDS ORDERED: CEFTRIAXONE PMX 1GM/50ML 50 ML ONE (20:31)
--- NOTE | 2018-08-29 20:40 | NUR ---
PT RESTING ON GURBRUNO, NAD, MEDICATED PEER MAR, IV ABX INFUSING. MONITORS IN PLACE, SIDERAILS UP X2, CALL LIGHT WITHIN REACH
[2018-08-29] MEDS ORDERED: methylPREDNISolone SOD SUCC 125 MG/2 ML ONE (20:56)
[2018-08-29] MEDS ORDERED: methylPREDNISolone SOD SUCC 125 MG/2 ML IVPush ONE (21:00)
[2018-08-29] MEDS ORDERED: PHARMACY MAY ADJ FOR RENAL FX MC PRN (21:30)
[2018-08-29] MEDS ORDERED: LIDODERM 5% PATCH TD PRN (21:30)
[2018-08-29] MEDS ORDERED: hydrALAzine 20 MG/ML, 1ML IVPush PRN (21:30)
[2018-08-29] MEDS ORDERED: ONDANSETRON ODT 4 MG PO PRN (21:30)
--- NOTE | 2018-08-29 21:40 | NUR ---
PT RESTING CALMLY, NAD, DENIES NEEDS AT THIS TIME, IV ABX INFUSING, MONITORS IN PLACE, CALL LIGHT WITHIN REACH. AWAITING ROOM FOR ADMIT
[2018-08-29] MEDS: SIMVASTATIN 20 MG TABLET PO SCH (22:55)
[2018-08-29] MEDS: GUAIFENESIN ER 600 MG TABLET PO SCH (22:55)
[2018-08-29] MEDS: GABAPENTIN 100 MG CAPSULE PO SCH (22:55)
[2018-08-29] MEDS: APIXABAN 2.5 MG TABLET PO SCH (22:55)
[2018-08-29] MEDS: MIDODRINE 5 MG TABLET PO SCH (22:56)
[2018-08-29 23:04] VITALS: BP 101/67
[2018-08-30] MEDS ORDERED: ALBUTEROL SULFATE 2.5 MG/3 ML NPPB PRN (00:30)
[2018-08-30 01:50] VITALS: BP 112/72
[2018-08-30 05:02] LABS: ANION GAP 7 mmol/L (5-15); CALCIUM 8.9 mg/dL (8.5-10.1); CHLORIDE 97 mmol/L (98-107)
[2018-08-30 05:19] LABS: MEAN CORPUSCULAR HEMOGLOBIN 34.5 pg (27.0-34.8); MEAN CORPUSCULAR HGB CONC 32.8 g/dL (32.4-35.8); MEAN CORPUSCULAR VOLUME 105.2 fL (80-100); PLATELET COUNT 155 x10^3/uL (130-400); RED BLOOD COUNT 2.65 x10^6/uL (3.82-5.3); RED CELL DISTRIBUTION WIDTH 14.9 % (9.6-15.2)
[2018-08-30] MEDS: LEVOTHYROXINE 50 MCG TABLET PO SCH (05:33)
[2018-08-30] MEDS: METOPROLOL TARTRATE 25 MG TABLET PO SCH ×2 (05:33→21:09)
[2018-08-30 05:56] LABS: BASOPHILS # (AUTO) 0.05 x10^3/uL (0-0.1); BASOPHILS % (AUTO) 0 % (0-1); EOSINOPHILS # (AUTO) 0.19 x10^3/uL (0-0.4); EOSINOPHILS % (AUTO) 2 % (1-7); LYMPHOCYTES # (AUTO) 0.24 x10^3/uL (1-3.4); LYMPHOCYTES % (AUTO) 2 % (22-44); MD SCAN; MONOCYTES # (AUTO) 0.04 x10^3/uL (0.2-0.8); MONOCYTES % (AUTO) 0 % (2-9); NEUTROPHILS # (AUTO) 10.59 x10^3/uL (1.8-6.8); NEUTROPHILS % (AUTO) 95 % (42-75)
[2018-08-30] MEDS: ALBUTEROL/IPRATROPIUM 2.5MG/0.5MG, 3 ML NPPB SCH ×4 (06:58→21:28)
[2018-08-30] MEDS: BUDESONIDE 0.5 MG/2 ML INHA INH SCH ×2 (06:59→21:28)
[2018-08-30] MEDS: FUROSEMIDE 40 MG/4 ML IV SCH ×2 (08:13→21:10)
[2018-08-30] MEDS: DILTIAZEM CD 180 MG CAP.ER.24H PO SCH (08:14)
[2018-08-30] MEDS: MIDODRINE 5 MG TABLET PO SCH ×3 (08:14→21:08)
[2018-08-30] MEDS: APIXABAN 2.5 MG TABLET PO SCH (08:14)
[2018-08-30] MEDS: CITALOPRAM 20 MG TABLET PO SCH (08:14)
[2018-08-30] MEDS: CALCIUM ACETATE 667 MG CAPSULE PO SCH ×3 (08:15→21:10)
[2018-08-30] MEDS: GABAPENTIN 100 MG CAPSULE PO SCH ×3 (08:15→21:10)
[2018-08-30] MEDS: OMEPRAZOLE 20 MG CAPSULE.DR PO SCH (08:15)
[2018-08-30] MEDS: GUAIFENESIN ER 600 MG TABLET PO SCH ×2 (08:15→21:10)
[2018-08-30 08:16] VITALS: BP 129/67
[2018-08-30] MEDS ORDERED: CEFTRIAXONE PMX 1GM/50ML 50 ML IV SCH (09:30)
[2018-08-30 13:35] VITALS: BP 123/72
[2018-08-30] MEDS ORDERED: PHARMACOKINETIC MONITORING MC PRN (16:00)
[2018-08-30] MEDS ORDERED: VANCOMYCIN PER PHARMACY MC PRN (16:00)
[2018-08-30] MEDS: PIPERACILLIN/TAZO/PMX 2.25GM 50 ML IV SCH ×2 (16:23→23:31)
[2018-08-30] MEDS ORDERED: VANCOMYCIN 1,200 MG in SODIUM CHLORIDE 0.9% 250 ML IV ONE (16:30)
[2018-08-30] MEDS ORDERED: ARANESP 60 MCG/ML **ESRD SQ SCH (18:00)
[2018-08-30 19:36] VITALS: BP 131/83
[2018-08-30 21:04] VITALS: BP 124/71
[2018-08-30] MEDS: SIMVASTATIN 20 MG TABLET PO SCH (21:09)
[2018-08-30] MEDS: APIXABAN 5 MG TABLET PO SCH (21:10)
[2018-08-30] MEDS ORDERED: AZITHROMYCIN 500 MG in SODIUM CHLORIDE 0.9% 250 ML IV SCH (21:30)
[2018-08-30] MEDS: ACETAMINOPHEN 325 MG TABLET PO PRN (23:31)
[2018-08-31 01:59] VITALS: BP 100/53
[2018-08-31 05:28] VITALS: BP 140/70
[2018-08-31] MEDS: LEVOTHYROXINE 50 MCG TABLET PO SCH (05:29)
[2018-08-31] MEDS: METOPROLOL TARTRATE 25 MG TABLET PO SCH ×2 (05:29→18:08)
[2018-08-31 06:00] LABS: ANION GAP 7 mmol/L (5-15); CALCIUM 8.6 mg/dL (8.5-10.1); CHLORIDE 99 mmol/L (98-107); CREATININE 3.01 mg/dL (0.55-1.02)
[2018-08-31 06:03] LABS: VANCOMYCIN,RANDOM 21.3 mcg/mL
[2018-08-31 06:14] LABS: BASOPHILS % (AUTO) 0 % (0-1); EOSINOPHILS # (AUTO) 0.42 x10^3/uL (0-0.4); EOSINOPHILS % (AUTO) 3 % (1-7); LYMPHOCYTES # (AUTO) 0.21 x10^3/uL (1-3.4); LYMPHOCYTES % (AUTO) 2 % (22-44); MD NO; MEAN CORPUSCULAR HEMOGLOBIN 34.2 pg (27.0-34.8); MEAN CORPUSCULAR HGB CONC 32.6 g/dL (32.4-35.8); MEAN CORPUSCULAR VOLUME 104.9 fL (80-100); MONOCYTES # (AUTO) 0.34 x10^3/uL (0.2-0.8); MONOCYTES % (AUTO) 3 % (2-9); NEUTROPHILS # (AUTO) 12.53 x10^3/uL (1.8-6.8); NEUTROPHILS % (AUTO) 93 % (42-75); PLATELET COUNT 131 x10^3/uL (130-400); RED BLOOD COUNT 2.56 x10^6/uL (3.82-5.3); RED CELL DISTRIBUTION WIDTH 14.5 % (9.6-15.2)
[2018-08-31] MEDS: ALBUTEROL/IPRATROPIUM 2.5MG/0.5MG, 3 ML NPPB SCH ×4 (08:00→20:00)
[2018-08-31] MEDS: BUDESONIDE 0.5 MG/2 ML INHA INH SCH ×2 (08:00→20:55)
[2018-08-31 08:11] VITALS: BP 133/74
[2018-08-31] MEDS: PIPERACILLIN/TAZO/PMX 2.25GM 50 ML IV SCH ×2 (09:13→17:00)
[2018-08-31] MEDS: MIDODRINE 5 MG TABLET PO SCH ×3 (09:14→20:45)
[2018-08-31] MEDS: DILTIAZEM CD 180 MG CAP.ER.24H PO SCH (09:15)
[2018-08-31] MEDS: GUAIFENESIN ER 600 MG TABLET PO SCH ×2 (09:15→20:45)
[2018-08-31] MEDS: GABAPENTIN 100 MG CAPSULE PO SCH ×3 (09:15→20:45)
[2018-08-31] MEDS: CITALOPRAM 20 MG TABLET PO SCH (09:15)
[2018-08-31] MEDS: OMEPRAZOLE 20 MG CAPSULE.DR PO SCH (09:16)
[2018-08-31] MEDS: FUROSEMIDE 40 MG/4 ML IV SCH ×2 (09:16→18:09)
[2018-08-31] MEDS: APIXABAN 5 MG TABLET PO SCH ×2 (09:16→20:45)
[2018-08-31] MEDS: CALCIUM ACETATE 667 MG CAPSULE PO SCH ×3 (09:16→18:08)
[2018-08-31] MEDS: DOCUSATE 100 MG CAPSULE PO PRN (09:36)
[2018-08-31 13:20] VITALS: BP 113/56
[2018-08-31 18:55] VITALS: BP 110/65
[2018-08-31] MEDS: SIMVASTATIN 20 MG TABLET PO SCH (20:45)
[2018-08-31] MEDS: ACETAMINOPHEN 325 MG TABLET PO PRN (21:37)
[2018-09-01] MEDS: PIPERACILLIN/TAZO/PMX 2.25GM 50 ML IV SCH ×3 (00:19→20:50)
[2018-09-01 00:48] VITALS: BP 128/65
[2018-09-01 05:39] LABS: MEAN CORPUSCULAR HEMOGLOBIN 34.4 pg (27.0-34.8); MEAN CORPUSCULAR HGB CONC 32.6 g/dL (32.4-35.8); MEAN CORPUSCULAR VOLUME 105.3 fL (80-100); MEAN PLATELET VOLUME 8.9 fL (7.4-10.4); PLATELET COUNT 121 x10^3/uL (130-400); RED BLOOD COUNT 2.49 x10^6/uL (3.82-5.3)
[2018-09-01 05:54] LABS: ANION GAP 8 mmol/L (5-15); CALCIUM 8.7 mg/dL (8.5-10.1); CHLORIDE 97 mmol/L (98-107); CREATININE 4.25 mg/dL (0.55-1.02)
[2018-09-01] MEDS: LEVOTHYROXINE 50 MCG TABLET PO SCH (06:23)
[2018-09-01] MEDS: METOPROLOL TARTRATE 25 MG TABLET PO SCH ×2 (06:23→17:15)
[2018-09-01 06:26] LABS: BASOPHILS % (AUTO) 0 % (0-1); EOSINOPHILS # (AUTO) 0.19 x10^3/uL (0-0.4); EOSINOPHILS % (AUTO) 2 % (1-7); LYMPHOCYTES % (AUTO) 2 % (22-44); MD SCAN; MONOCYTES # (AUTO) 0.22 x10^3/uL (0.2-0.8); MONOCYTES % (AUTO) 2 % (2-9); NEUTROPHILS # (AUTO) 12.23 x10^3/uL (1.8-6.8); NEUTROPHILS % (AUTO) 95 % (42-75)
[2018-09-01 07:06] VITALS: BP 154/68
[2018-09-01] MEDS: BUDESONIDE 0.5 MG/2 ML INHA INH SCH ×2 (07:15→20:08)
[2018-09-01] MEDS: ALBUTEROL/IPRATROPIUM 2.5MG/0.5MG, 3 ML NPPB SCH ×4 (07:15→20:08)
[2018-09-01] MEDS: CALCIUM ACETATE 667 MG CAPSULE PO SCH ×3 (08:00→17:52)
[2018-09-01] MEDS: GUAIFENESIN ER 600 MG TABLET PO SCH ×2 (10:20→20:50)
[2018-09-01] MEDS: GABAPENTIN 100 MG CAPSULE PO SCH ×3 (10:20→20:51)
[2018-09-01] MEDS: OMEPRAZOLE 20 MG CAPSULE.DR PO SCH (10:20)
[2018-09-01] MEDS: MIDODRINE 5 MG TABLET PO SCH ×3 (10:21→20:50)
[2018-09-01] MEDS: CITALOPRAM 20 MG TABLET PO SCH (10:23)
[2018-09-01 12:06] VITALS: BP 154/92
[2018-09-01] MEDS: DILTIAZEM CD 180 MG CAP.ER.24H PO SCH (12:07)
[2018-09-01] MEDS: APIXABAN 5 MG TABLET PO SCH ×2 (12:07→20:51)
[2018-09-01] MEDS: FUROSEMIDE 40 MG/4 ML IV SCH ×2 (12:07→20:50)
[2018-09-01 13:07] VITALS: BP 136/57
[2018-09-01] MEDS ORDERED: VANCOMYCIN 1,200 MG in SODIUM CHLORIDE 0.9% 250 ML IV ONE (14:00)
[2018-09-01 19:21] VITALS: BP 131/64
[2018-09-01] MEDS: SIMVASTATIN 20 MG TABLET PO SCH (20:51)
[2018-09-01] MEDS: ACETAMINOPHEN 325 MG TABLET PO PRN (21:48)
[2018-09-02 01:08] VITALS: BP 110/67
[2018-09-02] MEDS: PIPERACILLIN/TAZO/PMX 2.25GM 50 ML IV SCH ×3 (04:02→20:29)
[2018-09-02] MEDS: LEVOTHYROXINE 50 MCG TABLET PO SCH (05:38)
[2018-09-02] MEDS: METOPROLOL TARTRATE 25 MG TABLET PO SCH ×2 (05:38→16:17)
[2018-09-02 05:46] LABS: ANION GAP 9 mmol/L (5-15); CHLORIDE 97 mmol/L (98-107)
[2018-09-02 05:48] LABS: CALCIUM 8.7 mg/dL (8.5-10.1); CREATININE 3.07 mg/dL (0.55-1.02)
[2018-09-02 06:07] LABS: MEAN CORPUSCULAR HEMOGLOBIN 33.5 pg (27.0-34.8); MEAN CORPUSCULAR HGB CONC 32.3 g/dL (32.4-35.8); MEAN CORPUSCULAR VOLUME 103.9 fL (80-100); RED BLOOD COUNT 2.56 x10^6/uL (3.82-5.3); RED CELL DISTRIBUTION WIDTH 14.9 % (9.6-15.2)
[2018-09-02 06:27] LABS: BASOPHILS # (AUTO) 0.01 x10^3/uL (0-0.1); BASOPHILS % (AUTO) 0 % (0-1); EOSINOPHILS % (AUTO) 0 % (1-7); LYMPHOCYTES # (AUTO) 0.25 x10^3/uL (1-3.4); LYMPHOCYTES % (AUTO) 3 % (22-44); MD SCAN; MEAN PLATELET VOLUME 8.6 fL (7.4-10.4); MONOCYTES # (AUTO) 0.25 x10^3/uL (0.2-0.8); MONOCYTES % (AUTO) 3 % (2-9); NEUTROPHILS # (AUTO) 9.59 x10^3/uL (1.8-6.8); NEUTROPHILS % (AUTO) 95 % (42-75); PLATELET COUNT 109 x10^3/uL (130-400)
[2018-09-02 06:33] VITALS: BP 154/78
[2018-09-02] MEDS: ALBUTEROL/IPRATROPIUM 2.5MG/0.5MG, 3 ML NPPB SCH ×4 (07:45→19:44)
[2018-09-02] MEDS: GABAPENTIN 100 MG CAPSULE PO SCH ×3 (08:12→20:30)
[2018-09-02] MEDS: GUAIFENESIN ER 600 MG TABLET PO SCH ×2 (08:12→20:30)
[2018-09-02] MEDS: DILTIAZEM CD 180 MG CAP.ER.24H PO SCH (08:13)
[2018-09-02] MEDS: CALCIUM ACETATE 667 MG CAPSULE PO SCH ×3 (08:13→16:24)
[2018-09-02] MEDS: APIXABAN 5 MG TABLET PO SCH ×2 (08:13→20:30)
[2018-09-02] MEDS: MIDODRINE 5 MG TABLET PO SCH ×3 (08:13→20:31)
[2018-09-02] MEDS: OMEPRAZOLE 20 MG CAPSULE.DR PO SCH (08:13)
[2018-09-02] MEDS: CITALOPRAM 20 MG TABLET PO SCH (08:13)
[2018-09-02] MEDS: FUROSEMIDE 40 MG/4 ML IV SCH ×2 (08:15→16:18)
[2018-09-02] MEDS: BUDESONIDE 0.5 MG/2 ML INHA INH SCH ×2 (09:00→19:45)
[2018-09-02 13:13] VITALS: BP 140/63
[2018-09-02 19:33] VITALS: BP 148/67
[2018-09-02] MEDS: SIMVASTATIN 20 MG TABLET PO SCH (20:30)
[2018-09-02] MEDS: DOCUSATE 100 MG CAPSULE PO PRN (20:33)
[2018-09-03 00:52] VITALS: BP 138/62
[2018-09-03] MEDS: PIPERACILLIN/TAZO/PMX 2.25GM 50 ML IV SCH ×3 (04:16→20:16)
[2018-09-03] MEDS: METOPROLOL TARTRATE 25 MG TABLET PO SCH ×2 (05:46→17:54)
[2018-09-03] MEDS: LEVOTHYROXINE 50 MCG TABLET PO SCH (05:46)
[2018-09-03 05:52] LABS: BASOPHILS % (AUTO) 0 % (0-1); EOSINOPHILS # (AUTO) 0.15 x10^3/uL (0-0.4); EOSINOPHILS % (AUTO) 2 % (1-7); LYMPHOCYTES # (AUTO) 0.23 x10^3/uL (1-3.4); LYMPHOCYTES % (AUTO) 3 % (22-44); MD NO; MEAN CORPUSCULAR HGB CONC 32.4 g/dL (32.4-35.8); MEAN PLATELET VOLUME 8.7 fL (7.4-10.4); MONOCYTES # (AUTO) 0.21 x10^3/uL (0.2-0.8); MONOCYTES % (AUTO) 2 % (2-9); NEUTROPHILS # (AUTO) 8.95 x10^3/uL (1.8-6.8); NEUTROPHILS % (AUTO) 94 % (42-75); PLATELET COUNT 106 x10^3/uL (130-400); RED BLOOD COUNT 2.58 x10^6/uL (3.82-5.3); RED CELL DISTRIBUTION WIDTH 15.1 % (9.6-15.2)
[2018-09-03 06:03] LABS: ALBUMIN 3.1 g/dL (3.4-5.0); ANION GAP 10 mmol/L (5-15); CALCIUM 8.8 mg/dL (8.5-10.1); CHLORIDE 94 mmol/L (98-107)
[2018-09-03 06:05] LABS: CREATININE 4.19 mg/dL (0.55-1.02)
[2018-09-03] MEDS: BUDESONIDE 0.5 MG/2 ML INHA INH SCH ×2 (06:53→19:16)
[2018-09-03] MEDS: ALBUTEROL/IPRATROPIUM 2.5MG/0.5MG, 3 ML NPPB SCH ×4 (06:53→19:16)
[2018-09-03] MEDS ORDERED: AMOX1TAB61 PO (07:48)
[2018-09-03] MEDS ORDERED: FURO40TA6 PO (07:48)
[2018-09-03] MEDS ORDERED: APIX5TAB PO (07:48)
[2018-09-03] MEDS ORDERED: PRED20TA PO (07:48)
[2018-09-03] MEDS ORDERED: APIX2.5T PO (08:00)
[2018-09-03 08:05] VITALS: BP 156/68
[2018-09-03] MEDS: GABAPENTIN 100 MG CAPSULE PO SCH ×3 (08:11→20:16)
[2018-09-03] MEDS: APIXABAN 5 MG TABLET PO SCH ×2 (08:11→20:16)
[2018-09-03] MEDS: DILTIAZEM CD 180 MG CAP.ER.24H PO SCH (08:12)
[2018-09-03] MEDS: CALCIUM ACETATE 667 MG CAPSULE PO SCH ×3 (08:12→16:34)
[2018-09-03] MEDS: FUROSEMIDE 40 MG/4 ML IV SCH ×2 (08:12→16:33)
[2018-09-03] MEDS: CITALOPRAM 20 MG TABLET PO SCH (08:12)
[2018-09-03 08:27] VITALS: BP 126/69
[2018-09-03] MEDS: MIDODRINE 5 MG TABLET PO SCH ×3 (08:44→20:15)
[2018-09-03] MEDS: OMEPRAZOLE 20 MG CAPSULE.DR PO SCH (08:44)
[2018-09-03] MEDS: GUAIFENESIN ER 600 MG TABLET PO SCH ×2 (08:44→20:16)
[2018-09-03 12:31] VITALS: BP 101/58
[2018-09-03 17:46] VITALS: BP 105/64
[2018-09-03 19:10] VITALS: BP 98/60
[2018-09-03] MEDS: DOCUSATE 100 MG CAPSULE PO PRN (20:16)
[2018-09-03] MEDS: SIMVASTATIN 20 MG TABLET PO SCH (20:16)
[2018-09-04 01:11] VITALS: BP 116/67
[2018-09-04] MEDS: PIPERACILLIN/TAZO/PMX 2.25GM 50 ML IV SCH ×2 (04:18→11:52)
[2018-09-04 04:55] LABS: BASOPHILS # (AUTO) 0.05 x10^3/uL (0-0.1); BASOPHILS % (AUTO) 1 % (0-1); EOSINOPHILS # (AUTO) 0.27 x10^3/uL (0-0.4); EOSINOPHILS % (AUTO) 2 % (1-7); LYMPHOCYTES # (AUTO) 0.25 x10^3/uL (1-3.4); LYMPHOCYTES % (AUTO) 2 % (22-44); MD NO; MEAN CORPUSCULAR HEMOGLOBIN 34.8 pg (27.0-34.8); MEAN CORPUSCULAR HGB CONC 33.3 g/dL (32.4-35.8); MEAN CORPUSCULAR VOLUME 104.7 fL (80-100); MEAN PLATELET VOLUME 9.4 fL (7.4-10.4); MONOCYTES # (AUTO) 0.16 x10^3/uL (0.2-0.8); MONOCYTES % (AUTO) 2 % (2-9); NEUTROPHILS # (AUTO) 10.38 x10^3/uL (1.8-6.8); NEUTROPHILS % (AUTO) 93 % (42-75); PLATELET COUNT 107 x10^3/uL (130-400); RED BLOOD COUNT 2.65 x10^6/uL (3.82-5.3); RED CELL DISTRIBUTION WIDTH 15.3 % (9.6-15.2)
[2018-09-04 05:11] LABS: CHLORIDE 93 mmol/L (98-107)
[2018-09-04 05:19] LABS: ALBUMIN 2.9 g/dL (3.4-5.0); ANION GAP 13 mmol/L (5-15); CALCIUM 8.5 mg/dL (8.5-10.1); CREATININE 5.18 mg/dL (0.55-1.02)
[2018-09-04 05:34] VITALS: BP 113/66
[2018-09-04] MEDS: LEVOTHYROXINE 50 MCG TABLET PO SCH (05:41)
[2018-09-04] MEDS: METOPROLOL TARTRATE 25 MG TABLET PO SCH (05:41)
[2018-09-04] MEDS: BUDESONIDE 0.5 MG/2 ML INHA INH SCH (06:41)
[2018-09-04] MEDS: ALBUTEROL/IPRATROPIUM 2.5MG/0.5MG, 3 ML NPPB SCH ×2 (06:41→11:00)
[2018-09-04 06:59] VITALS: BP 131/73
[2018-09-04] MEDS: FUROSEMIDE 40 MG/4 ML IV SCH (07:37)
[2018-09-04] MEDS: CALCIUM ACETATE 667 MG CAPSULE PO SCH ×2 (08:00→11:52)
[2018-09-04] MEDS: DILTIAZEM CD 180 MG CAP.ER.24H PO SCH (09:00)
[2018-09-04] MEDS: GUAIFENESIN ER 600 MG TABLET PO SCH (10:07)
[2018-09-04] MEDS: OMEPRAZOLE 20 MG CAPSULE.DR PO SCH (10:07)
[2018-09-04] MEDS: GABAPENTIN 100 MG CAPSULE PO SCH (10:07)
[2018-09-04] MEDS: CITALOPRAM 20 MG TABLET PO SCH (10:07)
[2018-09-04] MEDS: APIXABAN 5 MG TABLET PO SCH (10:07)
[2018-09-04] MEDS: MIDODRINE 5 MG TABLET PO SCH (10:17)
== END 2018-09-04 14:00 | disposition home health service (06) | DRG 871 ==
LOC: ED 20:45 → EDIP 20:51 → ED 20:57 → 4EST 22:43 → DCLOUNGE 09-04 13:37
PROVIDERS: ADMIT Internal Medicine; ATTEND Internal Medicine
PROC: 5A1D70Z Performance of Urinary Filtration, Intermittent, Less than 6 Hours Per Day (ICD-10-PCS; principal; 2018-08-30)
PROC: 5A1D70Z Performance of Urinary Filtration, Intermittent, Less than 6 Hours Per Day (ICD-10-PCS; 2018-09-01)
PROC: 5A1D70Z Performance of Urinary Filtration, Intermittent, Less than 6 Hours Per Day (ICD-10-PCS; 2018-09-04)
DX: A41.9 Sepsis, unspecified organism (principal); J96.21 Acute and chronic respiratory failure with hypoxia; I50.43 Acute on chronic combined systolic (congestive) and diastolic (congestive) heart failure; J18.9 Pneumonia, unspecified organism; N18.6 End stage renal disease; E44.0 Moderate protein-calorie malnutrition; E87.1 Hypo-osmolality and hyponatremia; I13.2 Hypertensive heart and chronic kidney disease with heart failure and with stage 5 chronic kidney disease, or end stage renal disease; J44.0 Chronic obstructive pulmonary disease with (acute) lower respiratory infection; J98.11 Atelectasis; D68.69 Other thrombophilia; J44.1 Chronic obstructive pulmonary disease with (acute) exacerbation; D53.9 Nutritional anemia, unspecified; D63.1 Anemia in chronic kidney disease; E03.9 Hypothyroidism, unspecified; E87.5 Hyperkalemia; F32.9 Major depressive disorder, single episode, unspecified; I27.20 Pulmonary hypertension, unspecified; I35.8 Other nonrheumatic aortic valve disorders; I48.0 Paroxysmal atrial fibrillation; K21.9 Gastro-esophageal reflux disease without esophagitis; N25.0 Renal osteodystrophy; N30.90 Cystitis, unspecified without hematuria; Y95 Nosocomial condition; Z66 Do not resuscitate; D50.9 Iron deficiency anemia, unspecified; Z79.01 Long term (current) use of anticoagulants; Z82.49 Family history of ischemic heart disease and other diseases of the circulatory system; Z85.51 Personal history of malignant neoplasm of bladder; Z85.528 Personal history of other malignant neoplasm of kidney; Z87.891 Personal history of nicotine dependence; Z90.5 Acquired absence of kidney; Z99.2 Dependence on renal dialysis; Z99.81 Dependence on supplemental oxygen; Z68.23 Body mass index [BMI] 23.0-23.9, adult
CPT/HCPCS: 36415; 71045; 80048; 80053; 80069; 80202; 81001; 83605; 83735; 83880; 84132; 84145; 84484; 85025; 87040; 87070; 87081; 87086; 87205; 90935; 93005; 94640; 96365; 96375; G0378; J0456; J0696; J0882; J1940; J2543; J3370; J7620; J7626; J2930; J7050; J7512